=== PATIENT | female | born 1950 | race Caucasian/White ===

== ENCOUNTER 2017-05-16 09:38 | Emergency (ER) | payer OTHER ==
[~2017-05-16] VITALS: Ht 170.2 cm; Wt 72.7 kg
[~2017-05-16 09:38] MED LIST: AMITRIPTYLINE H10 MG PO; ASPIRIN81 M1 PO; ULTRAM50 MG PO; WELLBUTRIN75 MG PO
[2017-05-16] MEDS ORDERED: MOTRIN600 MG PO (12:17)
[2017-05-16] MEDS ORDERED: TRAMADOL HCL50 MG PO (12:17)
[2017-05-16 12:39] VITALS: BP 140/81
== END 2017-05-16 12:40 | disposition home or self-care (01) ==
LOC: EME 09:38
DX: S83.412A Sprain of medial collateral ligament of left knee, initial encounter (principal); W01.0XXA Fall on same level from slipping, tripping and stumbling without subsequent striking against object, initial encounter; Y93.K9 Activity, other involving animal care
CPT/HCPCS: 73564; 99281; 99284